=== PATIENT | male | born 1955 ===

== ENCOUNTER 2018-06-30 13:16 | Emergency (ER) | payer OTHER ==
[2018-06-30 13:31] VITALS: BP 143/87; PULSE 89; RESP 17; TEMP 98.7; O2SAT 100
[2018-06-30] MEDS ORDERED: Oxycodone/Acetaminophen 5/325 mg Tab PO STA (13:47)
--- NOTE | 2018-06-30 13:51 | ED PDOC ---
HPI: General Adult Time Seen by Provider: 06/30/18 13:49 Chief Complaint (Nursing): Upper Extremity Problem/Injury Chief Complaint (Provider): Neck Pain History Per: Patient History/Exam Limitations: no limitations Onset/Duration Of Symptoms: Hrs Current Symptoms Are (Timing): Still Present Additional Complaint(s): 62 y/o male presents to the ED for evaluation of left sided neck pain since waking up this morning. Patient reports pain has gradually worsened. Patient states last dose of Motrin was a 5 AM and Tylenol was last night. Otherwise, patient denies any falls. PMD: none Past Medical History Reviewed: Historical Data, Nursing Documentation, Vital Signs Vital Signs: Last Vital Signs Temp 98.7 F 06/30/18 13:30 Pulse 89 06/30/18 13:30 Resp 17 06/30/18 13:30 BP 143/87 06/30/18 13:30 Pulse Ox 100 06/30/18 13:30 - Medical History PMH: No Chronic Diseases - Surgical History Surgical History: No Surg Hx - Family History Family History: States: Unknown Family Hx - Home Medications Home Medications: Ambulatory Orders Medication Instructions Recorded Naproxen 375 mg PO Q8 PRN #21 tablet 06/30/18 diaZEpam [Valium] 5 mg PO Q6 PRN #4 tab 06/30/18 - Allergies Allergies/Adverse Reactions: Allergies Allergy/AdvReac Type Severity Reaction Status Date / Time No Known Allergies Allergy Verified 06/30/18 13:30 Review of Systems ROS Statement: Except As Marked, All Systems Reviewed And Found Negative Musculoskeletal: Positive for: Neck Pain Physical Exam - Reviewed Nursing Documentation Reviewed: Yes Vital Signs Reviewed: Yes - Physical Exam Appears: Positive for: No Acute Distress Neck: Positive for: Normal (Tenderness with Lateral rotation of the neck and the left lateral paracervical region. ) - ECG O2 Sat by Pulse Oximetry: 100 (RA) Pulse Ox Interpretation: Normal Medical Decision Making Medical Decision Making: Time: 1347 Plan: -- Percocet 5/325 mg Tab -- Toradol 30 mg IM -- Patient is stable for discharge home with a prescription of muscle relaxants Scribe Attestation: Documented by Sue Jeronimo, acting as a scribe Diamond Burkett PA-C. Provider Scribe Attestation: All medical record entries made by the Scribe were at my direction and personally dictated by me. I have reviewed the chart and agree that the record accurately reflects my personal performance of the history, physical exam, medical decision making, and the department course for this patient. I have also personally directed, reviewed, and agree with the discharge instructions and disposition. Disposition - Clinical Impression Clinical Impression: Neck muscle strain - Patient ED Disposition Is Patient to be Admitted: No - Disposition Referrals: [facility] [Outside] Disposition: Routine/Home Disposition Time: 14:21 Condition: FAIR Prescriptions: diaZEpam [Valium] 5 mg PO Q6 PRN #4 tab PRN Reason: Muscle Spasm Naproxen 375 mg PO Q8 PRN #21 tablet PRN Reason: Pain, Moderate (4-7) Instructions: Neck Sprain (DC) Print Language: IRANIAN
[2018-06-30] MEDS ORDERED: Oxycodone/Acetaminophen 5/325 mg Tab ONE (14:27)
== END 2018-06-30 14:51 | disposition home or self-care (01) ==
LOC: H.ER 13:16
DX: S16.1XXA Strain of muscle, fascia and tendon at neck level, initial encounter (principal); X58.XXXA Exposure to other specified factors, initial encounter; Y92.89 Other specified places as the place of occurrence of the external cause
CPT/HCPCS: 96372; 99283; J1885